=== PATIENT | female | born 1955 | race Caucasian/White ===

== ENCOUNTER 2023-01-23 10:21 | Oncology outpatient (recurring) (ONCR) | payer MEDICARE, SELFPAY | END 2023-02-03 23:59 | disposition home or self-care (01) | PROVIDERS: PCP Family Medicine; Visit Provider Internal Medicine Medical Oncology | DX: C50.811 Malignant neoplasm of overlapping sites of right female breast (principal); Z17.0 Estrogen receptor positive status [ER+]; F17.210 Nicotine dependence, cigarettes, uncomplicated; N28.89 Other specified disorders of kidney and ureter; R59.0 Localized enlarged lymph nodes; R16.1 Splenomegaly, not elsewhere classified; Z79.811 Long term (current) use of aromatase inhibitors | CPT/HCPCS: 99204 ==

== ENCOUNTER → 2023-01-23 11:20 | Outpatient (BNVA) | payer MEDICARE, SELFPAY | PROVIDERS: PCP Family Medicine; Visit Provider Internal Medicine Medical Oncology | DX: Z53.9 Procedure and treatment not carried out, unspecified reason (principal) | CPT/HCPCS: 99215 ==

== ENCOUNTER 2023-02-01 06:48 | Outpatient (CLI) | payer MEDICARE, MEDICAID, SELFPAY ==
--- NOTE | 2023-02-01 07:15 | MRR_ITS ---
PROCEDURE INFORMATION: Exam: MR Abdomen Without and With Contrast Exam date and time: 02/01/2023 7:24 AM Age: 67 years old Clinical indication: Abnormal findings; Mass, lump, or swelling; Kidney, left; Prior surgery; Surgery date: 6+ months; Surgery type: Gallbladder removal of unknown date. ; Additional info: Eval left kidney mass seen on pet; Ax t1 performed post contrast not pre. TECHNIQUE: Imaging protocol: Magnetic resonance imaging of the abdomen without and with contrast. Contrast material: MULTIHANCE; Contrast volume: 14 ml; Contrast route: INTRAVENOUS (IV); COMPARISON: No relevant prior studies available. FINDINGS: Liver: There is low signal in the liver likely related to iron deposition. No suspicious liver mass. Gallbladder and bile ducts: Stable post cholecystectomy changes. Pancreas: Unremarkable. No ductal dilation. Spleen: Splenomegaly with 14 cm spleen is unchanged. Adrenal glands: Unremarkable. No mass. Kidneys and ureters: On MRI there is no suspicious mass seen in the left kidney to correlate with the PET finding which is likely related to prominent column of Seth. The cortical nodule in the upper pole of the left kidney on PET is not seen on MRI. Nonspecific bilateral perinephric fluid. Stomach and bowel: Visualized stomach and intestines are unremarkable. Intraperitoneal space: No free fluid. Vasculature: No abdominal aortic aneurysm. Lymph nodes: Lymph node in the gastrohepatic ligament measuring 1.3 cm is unchanged without significant uptake on comparison CT. Bones/joints: Unremarkable. Soft tissues: Unremarkable. MR/MR abdomen wo/w con* [id number] IMPRESSION: 1. No suspicious renal mass identified to correlate with the PET finding which was likely related to a prominent column of Seth. 2. Stable mildly prominent gastrohepatic ligament lymph node without significant uptake on comparison PET. Recommend attention on follow-up imaging. 3. Possible hemochromatosis changes. Correlate with laboratory findings.
[2023-02-01] MEDS: gadobenate dimeglumine 20 mL vial IV (08:00)
== END 2023-02-01 06:49 | disposition home or self-care (01) ==
LOC: RAD 06:51
PROVIDERS: PCP Family Medicine; Visit Provider Internal Medicine Medical Oncology
DX: N28.89 Other specified disorders of kidney and ureter (principal); R59.9 Enlarged lymph nodes, unspecified
CPT/HCPCS: 74183; 99215; A9577

== ENCOUNTER 2023-02-08 13:49 | Oncology outpatient (recurring) (ONCR) | payer MEDICARE, SELFPAY | END 2023-03-06 23:59 | disposition home or self-care (01) | PROVIDERS: PCP Family Medicine; Visit Provider Internal Medicine Medical Oncology | DX: C50.811 Malignant neoplasm of overlapping sites of right female breast (principal); Z17.0 Estrogen receptor positive status [ER+]; N28.89 Other specified disorders of kidney and ureter; R59.0 Localized enlarged lymph nodes; R16.1 Splenomegaly, not elsewhere classified; E83.119 Hemochromatosis, unspecified; F17.210 Nicotine dependence, cigarettes, uncomplicated | CPT/HCPCS: 99215 ==

== ENCOUNTER 2023-05-15 09:41 | Oncology outpatient (recurring) (ONCR) | payer MEDICARE, MEDICAID, SELFPAY ==
[2023-05-15 10:04] VITALS: BP 157/67; PULSE 68; TEMP 36.3; O2SAT 99
[2023-05-15 10:09] LABS: Basophils % 0.4 %; Eosinophils % 1.1 %; Lymphocytes # 0.9 10^3/uL (0.8-4.8); Lymphocytes % 31.8 %; Mean Corpuscular HGB Conc 31.8 g/dL (30-55); Mean Corpuscular Hemoglobin 29.9 pg (27-33); Mean Platelet Volume 8.2 fL (7.4-10.4); Monocytes # 0.3 10^3/uL (0.2-0.9); Monocytes % 8.9 %; Neutrophils # 1.61 10^3/uL (1.8-7.7); Neutrophils % 57.4 %; Nucleated Red Blood Cells % 0 %; Platelet Count 154 10^3/cmm (157-399); Red Blood Count 2.98 10^6/uL (3.85-5.65); Red Cell Distribution Width 12.8 % (12.1-15.1)
[2023-05-15 10:34] LABS: Alanine Aminotransferase 12 U/L (0-33); Albumin Level 3.3 g/dL (3.5-5.2); Alkaline Phosphatase 199 U/L (35-105); Anion Gap 10.7 (5-19); Aspartate Amino Transferase 13 U/L (0-32); Blood Urea Nitrogen 26 mg/dL (8-23); Calcium 8.3 mg/dL (8.5-10.5); Carbon Dioxide 23 mmol/L (22-29); Chloride 101 mmol/L (98-107); Globulin 3.8 g/dL (1.3-4.6); Glucose 86 mg/dL (65-115); Osmolality Calculated 272 mOsm/kg (285-295); Potassium 5.7 mmol/L (3.5-5.1); Sodium 129 mmol/L (136-145); Total Bilirubin 0.2 mg/dL (0.15-1.2); Total Protein 7.1 g/dL (6.6-8.7)
== END 2023-06-06 23:59 | disposition home or self-care (01) ==
PROVIDERS: Internal Medicine Medical Oncology; PCP Family Medicine; Visit Provider Internal Medicine Medical Oncology
DX: C50.911 Malignant neoplasm of unspecified site of right female breast (principal); Z78.0 Asymptomatic menopausal state; N28.89 Other specified disorders of kidney and ureter; Z79.899 Other long term (current) drug therapy
CPT/HCPCS: 36415; 80053; 85025; 99215

== ENCOUNTER 2023-05-19 13:33 | Outpatient (CLI) | payer MEDICARE, SELFPAY ==
--- NOTE | 2023-05-19 14:00 | XR_ITS ---
WS: [id number] SCREENING DEXA SCAN [facility] CLINICAL INFORMATION: baseline COMPARISON: None. FINDINGS: The L1-L4 bone mineral density measures 0.941 g/cm2. This corresponds to a T score score of -2.0 and Z score of -0.4. Left femoral neck bone mineral density measures 0.737 g/cm2. This corresponds to a T score of -2.1 an d Z score of -0.8. Right femoral neck bone mineral density measures 0.728 g/cm2. This corresponds to a T score -2.2of an d Z score of -0.9. Mean femoral neck bone mineral density measures 0.733 g/cm2. This corresponds to a T score of -2.2 an d Z score of -0.8. IMPRESSION: Osteopenia lumbar spine. Osteopenia femoral necks. Patient's FRAX calculated 10 year probability for major osteoporotic fracture is 15.9% and osteoporot ic hip fracture is 5.9%.
== END 2023-05-19 13:34 | disposition home or self-care (01) ==
LOC: RAD 13:39
PROVIDERS: PCP Family Medicine; Visit Provider Internal Medicine Medical Oncology
DX: M85.88 Other specified disorders of bone density and structure, other site (principal); Z78.0 Asymptomatic menopausal state
CPT/HCPCS: 77080

== ENCOUNTER 2023-08-17 10:37 | Oncology outpatient (recurring) (ONCR) | payer MEDICARE, MEDICAID, SELFPAY ==
[2023-08-17 11:20] VITALS: BP 136/67; PULSE 83; RESP 16; TEMP 36.6; O2SAT 96
[2023-08-17 11:25] LABS: Basophils % 0.3 %; Eosinophils % 1.4 %; Hematocrit 25.2 % (36-47); Lymphocytes # 0.8 10^3/uL (0.8-4.8); Lymphocytes % 26.2 %; Mean Corpuscular Hemoglobin 29.3 pg (27-33); Mean Corpuscular Volume 94.7 fl (85-98); Mean Platelet Volume 8.1 fL (7.4-10.4); Monocytes # 0.3 10^3/uL (0.2-0.9); Monocytes % 9.3 %; Neutrophils # 1.81 10^3/uL (1.8-7.7); Neutrophils % 62.5 %; Nucleated Red Blood Cells % 0 %; Platelet Count 153 10^3/cmm (157-399); Red Blood Count 2.66 10^6/uL (3.85-5.65); Red Cell Distribution Width 12.7 % (12.1-15.1)
[2023-08-17 11:53] LABS: Alanine Aminotransferase 10 U/L (0-33); Albumin Level 3.5 g/dL (3.5-5.2); Alkaline Phosphatase 168 U/L (35-105); Anion Gap 13.3 (5-19); Aspartate Amino Transferase 12 U/L (0-32); Blood Urea Nitrogen 29 mg/dL (8-23); Calcium 8.4 mg/dL (8.5-10.5); Carbon Dioxide 25 mmol/L (22-29); Chloride 102 mmol/L (98-107); Creatinine Clr Calc Pharmacy 26.1102; Globulin 3.7 g/dL (1.3-4.6); Glomerular Filtration Rate 26.3 mL/min (90-130); Glucose 94 mg/dL (65-115); Osmolality Calculated 286 mOsm/kg (285-295); Potassium 5.3 mmol/L (3.5-5.1); Sodium 135 mmol/L (136-145); Total Bilirubin 0.2 mg/dL (0.15-1.2); Total Protein 7.2 g/dL (6.6-8.7)
== END 2023-09-06 23:59 | disposition home or self-care (01) ==
PROVIDERS: Internal Medicine Medical Oncology; PCP Family Medicine; Visit Provider Internal Medicine Medical Oncology
DX: C50.911 Malignant neoplasm of unspecified site of right female breast (principal); Z78.0 Asymptomatic menopausal state; N28.89 Other specified disorders of kidney and ureter; Z79.899 Other long term (current) drug therapy
CPT/HCPCS: 36415; 80053; 82378; 82607; 82728; 83010; 83615; 85025; 85045; 86300; 99214

== ENCOUNTER 2023-09-28 09:45 | Oncology outpatient (recurring) (ONCR) | payer MEDICARE, MEDICAID, SELFPAY ==
[2023-09-13 09:28] LABS: Basophils % 0.5 %; Eosinophils # 0.1 10^3/uL (0.0-0.8); Eosinophils % 1.9 %; Hematocrit 28.6 % (36-47); Lymphocytes # 0.9 10^3/uL (0.8-4.8); Lymphocytes % 21.3 %; Mean Corpuscular HGB Conc 31.5 g/dL (30-55); Mean Corpuscular Hemoglobin 28.7 pg (27-33); Mean Corpuscular Volume 91.1 fl (85-98); Mean Platelet Volume 8.2 fL (7.4-10.4); Monocytes # 0.3 10^3/uL (0.2-0.9); Monocytes % 6.4 %; Neutrophils # 2.94 10^3/uL (1.8-7.7); Neutrophils % 69.7 %; Nucleated Red Blood Cells % 0 %; Platelet Count 231 10^3/cmm (157-399); Red Blood Count 3.14 10^6/uL (3.85-5.65); Red Cell Distribution Width 13.7 % (12.1-15.1); White Blood Count 4.22 10^3/uL (3.29-11.43)
[2023-09-13 10:10] LABS: Alanine Aminotransferase 17 U/L (0-33); Albumin Level 3.4 g/dL (3.5-5.2); Alkaline Phosphatase 201 U/L (35-105); Anion Gap 13.6 (5-19); Aspartate Amino Transferase 18 U/L (0-32); Blood Urea Nitrogen 26 mg/dL (8-23); Calcium 8.5 mg/dL (8.5-10.5); Carbon Dioxide 24 mmol/L (22-29); Chloride 100 mmol/L (98-107); Creatinine Clr Calc Pharmacy 29.0346; Ferritin 702 ng/mL (15-150); Globulin 3.5 g/dL (1.3-4.6); Glomerular Filtration Rate 29.9 mL/min (90-130); Glucose 98 mg/dL (65-115); Lactate Dehydrogenase 114 U/L (135-214); Osmolality Calculated 279 mOsm/kg (285-295); Potassium 5.6 mmol/L (3.5-5.1); Sodium 132 mmol/L (136-145); Total Bilirubin 0.3 mg/dL (0.15-1.2); Total Protein 6.9 g/dL (6.6-8.7); Vitamin B12 1686 pg/mL (232-1245)
[2023-09-13 10:22] LABS: Iron 36 ug/dL (37-145); Total Iron Binding Capacity 171 mcg/dl; Unsaturated Iron Binding 135 ug/dL (112-347)
== END 2023-10-05 23:59 | disposition home or self-care (01) ==
PROVIDERS: Internal Medicine; PCP Family Medicine; Visit Provider Internal Medicine Medical Oncology
DX: Z53.9 Procedure and treatment not carried out, unspecified reason (principal); C18.0 Malignant neoplasm of cecum; C50.511 Malignant neoplasm of lower-outer quadrant of right female breast
CPT/HCPCS: 36415; 80053; 82378; 82607; 82728; 83540; 83550; 83615; 85025; 99215

== ENCOUNTER 2023-10-06 08:52 | Outpatient (CLI) | payer MEDICARE, MEDICAID, SELFPAY ==
[2023-10-06] MEDS: iohexol 350 mg/mL 500 mL Btl (per mL) PO (09:35)
--- NOTE | 2023-10-06 10:00 | CT_ITS ---
WS: [id number] CT CHEST, ABDOMEN AND PELVIS WITHOUT CONTRAST HISTORY: breast cancer TECHNIQUE: Contiguous 5 mm axial imaging performed through the chest, abdomen and pelvis without IV c ontrast, oral contrast has been provided. Coronal and sagittal reformats chest. Coronal and sagittal reformats through the abdomen and pelvis. All CT scans at [facility] use at least one of thes e dose optimization techniques: automated exposure control; mA and/or kV adjustment per patient size (includes targeted exams where dose is matched to clinical indication); or iterative reconstruction. CONTRAST: None DLP: 727.39 mGy.cm COMPARISON: PET/CT 01/11/[address]: Lungs are hyperexpanded. 5 mm nodule in the LEFT lower lobe was negative on PET/CT. There a re a few additional very tiny micronodules. No enlarging or suspicious mass or nodule. There are a fe w granulomata. Heart is mildly enlarged. No pericardial or pleural effusion. Prior RIGHT mastectomy. No recurrent mass at the mastectomy site. There are few small mediastinal and hilar lymph nodes. RIGHT internal mammary chain lymph node 1.3 cm unchanged. Small but numerous karen r and mediastinal lymph nodes are also unchanged as appreciated on this unenhanced exam. There is a c ardiophrenic lymph node measuring 2.0 cm which is unchanged. There are additional smaller cardiophren ic lymph nodes. Small retrocrural lymph nodes. Abdomen CT: Liver and spleen are enlarged. Gallbladder has been removed. Poor visualization of the pa ncreas. No adrenal mass. Atrophic kidneys. Marked perinephric stranding around the kidneys. There is a small amount of ascites throughout the abdomen and pelvis. Diffuse anasarca. Mild atherosclerosis a melecio. Stomach is being mildly compressed by the enlarged liver and spleen. There is mild thickening of the duodenal C-loop. No GI tract obstruction. Surgical anastomosis is noted near the hepatic flexure. No history provided concerning this surgery. There is marked soft tissue inflammation and stranding within the mesentery and omentum. There are sm all lymph nodes scattered throughout the mesentery and retroperitoneum. Pelvic CT: Small amount of free fluid in the pelvis. Diffuse soft tissue anasarca. No adenopathy. No destructive bone lesions. IMPRESSION: 1. Status post RIGHT mastectomy. No recurrent mass at the mastectomy site. 2. No suspicious pulmonary nodules identified. 3. RIGHT internal mammary chain and cardiophrenic lymph nodes are reidentified. These were present o n PET/CT and have not changed significantly in size. No new adenopathy identified on this unenhanced CT. 4. Marked hepatic and splenic enlargement. 5. Small amount of ascites throughout the abdomen and pelvis may be related to the patient's hepatoc ellular disease. 6. There are numerous small mesenteric and retroperitoneal lymph nodes. These are too small to james cterize and may be related to patient's hepatocellular disease. 7. Diffuse marked soft tissue anasarca. 8. No adrenal mass. 9. Poor visualization of the GI tract and visceral organs without IV contrast.
== END 2023-10-06 08:53 | disposition home or self-care (01) ==
LOC: RAD 08:53
PROVIDERS: PCP Family Medicine; Visit Provider Internal Medicine Medical Oncology
DX: C50.111 Malignant neoplasm of central portion of right female breast (principal); C18.0 Malignant neoplasm of cecum
CPT/HCPCS: 71250; 74176; Q9967

== ENCOUNTER 2024-01-02 08:49 | Oncology outpatient (recurring) (ONCR) | payer MEDICARE, MEDICAID, SELFPAY ==
[2024-01-02 09:09] VITALS: BP 155/71; PULSE 77; RESP 18; TEMP 36.5; O2SAT 96
[2024-01-02 09:25] LABS: Basophils % 0.4 %; Eosinophils # 0.1 10^3/uL (0.0-0.8); Eosinophils % 1.8 %; Hematocrit 25.3 % (36-47); Lymphocytes # 0.7 10^3/uL (0.8-4.8); Lymphocytes % 23.3 %; Mean Corpuscular HGB Conc 31.2 g/dL (30-55); Mean Corpuscular Hemoglobin 29.8 pg (27-33); Mean Corpuscular Volume 95.5 fl (85-98); Mean Platelet Volume 8.6 fL (7.4-10.4); Monocytes # 0.3 10^3/uL (0.2-0.9); Monocytes % 9.9 %; Neutrophils # 1.83 10^3/uL (1.8-7.7); Neutrophils % 64.6 %; Nucleated Red Blood Cells % 0 %; Platelet Count 167 10^3/cmm (157-399); Red Blood Count 2.65 10^6/uL (3.85-5.65); Red Cell Distribution Width 13.2 % (12.1-15.1); White Blood Count 2.83 10^3/uL (3.29-11.43)
[2024-01-02 10:03] LABS: Carcinoembryonic Antigen 5.6 ng/mL (0.0-4.7)
[2024-01-02 10:14] LABS: Alanine Aminotransferase 7 U/L (0-33); Albumin Level 3.4 g/dL (3.5-5.2); Alkaline Phosphatase 186 U/L (35-105); Anion Gap 15.1 (5-19); Aspartate Amino Transferase 9 U/L (0-32); Blood Urea Nitrogen 26 mg/dL (8-23); Calcium 8.5 mg/dL (8.5-10.5); Carbon Dioxide 22 mmol/L (22-29); Chloride 102 mmol/L (98-107); Creatinine Clr Calc Pharmacy 26.2064; Globulin 3.6 g/dL (1.3-4.6); Glomerular Filtration Rate 27.9 mL/min (90-130); Glucose 86 mg/dL (65-115); Lactate Dehydrogenase 92 U/L (135-214); Osmolality Calculated 282 mOsm/kg (285-295); Potassium 5.1 mmol/L (3.5-5.1); Sodium 134 mmol/L (136-145); Total Bilirubin 0.2 mg/dL (0.15-1.2)
[2024-01-02 11:41] LABS: Ferritin 374 ng/mL (15-150); Iron 37 ug/dL (37-145); Percent Saturation 19.2 % (20-50); Total Iron Binding Capacity 192 mcg/dl; Unsaturated Iron Binding 155 ug/dL (112-347)
== END 2024-01-05 23:59 | disposition home or self-care (01) ==
PROVIDERS: PCP Family Medicine; Visit Provider Internal Medicine Medical Oncology
DX: C18.0 Malignant neoplasm of cecum (principal); C50.511 Malignant neoplasm of lower-outer quadrant of right female breast; D64.9 Anemia, unspecified
CPT/HCPCS: 36415; 80053; 82378; 82728; 83540; 83550; 83615; 85025; 99214

== ENCOUNTER 2024-04-11 11:31 | Oncology outpatient (recurring) (ONCR) | payer MEDICARE, MEDICAID, SELFPAY ==
[2024-04-11 12:04] LABS: Basophils % 0.3 %; Eosinophils # 0.1 10^3/uL (0.0-0.8); Eosinophils % 2.2 %; Hematocrit 26.5 % (36-47); Lymphocytes # 0.9 10^3/uL (0.8-4.8); Lymphocytes % 27.5 %; Mean Corpuscular HGB Conc 31.7 g/dL (30-55); Mean Corpuscular Volume 94.6 fl (85-98); Mean Platelet Volume 7.9 fL (7.4-10.4); Monocytes # 0.3 10^3/uL (0.2-0.9); Monocytes % 9.7 %; Neutrophils # 1.93 10^3/uL (1.8-7.7); Neutrophils % 60.3 %; Nucleated Red Blood Cells % 0 %; Platelet Count 166 10^3/cmm (157-399); Red Cell Distribution Width 13.5 % (12.1-15.1)
[2024-04-11 12:32] LABS: Carcinoembryonic Antigen 5.9 ng/mL (0.0-4.7)
[2024-04-11 12:43] LABS: Alanine Aminotransferase 8 U/L (0-33); Albumin Level 3.6 g/dL (3.5-5.2); Alkaline Phosphatase 158 U/L (35-105); Anion Gap 15.8 (5-19); Aspartate Amino Transferase 11 U/L (0-32); Blood Urea Nitrogen 27 mg/dL (8-23); Carbon Dioxide 23 mmol/L (22-29); Chloride 104 mmol/L (98-107); Globulin 3.4 g/dL (1.3-4.6); Glomerular Filtration Rate 26.2 mL/min (90-130); Glucose 92 mg/dL (65-115); Osmolality Calculated 289 mOsm/kg (285-295); Potassium 5.8 mmol/L (3.5-5.1); Sodium 137 mmol/L (136-145); Total Bilirubin 0.2 mg/dL (0.15-1.2)
== END 2024-05-06 23:59 | disposition home or self-care (01) ==
PROVIDERS: PCP Family Medicine; Visit Provider Internal Medicine Medical Oncology
DX: C18.0 Malignant neoplasm of cecum; C50.511 Malignant neoplasm of lower-outer quadrant of right female breast; Z79.899 Other long term (current) drug therapy; F17.210 Nicotine dependence, cigarettes, uncomplicated; Z17.0 Estrogen receptor positive status [ER+]; Z90.49 Acquired absence of other specified parts of digestive tract; Z90.11 Acquired absence of right breast and nipple; Z79.811 Long term (current) use of aromatase inhibitors; D64.9 Anemia, unspecified
CPT/HCPCS: 36415; 80053; 82378; 85025; 99213

== ENCOUNTER 2024-10-01 09:04 | Oncology outpatient (recurring) (ONCR) | payer MEDICARE, SELFPAY ==
[2024-10-01 09:36] LABS: Basophils % 0.3 %; Eosinophils # 0.1 10^3/uL (0.0-0.8); Eosinophils % 1.4 %; Hematocrit 28.7 % (36-47); Lymphocytes # 0.8 10^3/uL (0.8-4.8); Lymphocytes % 23.1 %; Mean Corpuscular HGB Conc 31.4 g/dL (30-55); Mean Corpuscular Hemoglobin 29.7 pg (27-33); Mean Corpuscular Volume 94.7 fl (85-98); Mean Platelet Volume 8.4 fL (7.4-10.4); Monocytes # 0.4 10^3/uL (0.2-0.9); Monocytes % 10.7 %; Neutrophils # 2.27 10^3/uL (1.8-7.7); Neutrophils % 63.9 %; Nucleated Red Blood Cells % 0 %; Platelet Count 121 10^3/cmm (157-399); Red Blood Count 3.03 10^6/uL (3.85-5.65); Red Cell Distribution Width 14.1 % (12.1-15.1); White Blood Count 3.55 10^3/uL (3.29-11.43)
[2024-10-01 10:00] LABS: Carcinoembryonic Antigen 5.4 ng/mL (0.0-4.7)
[2024-10-01 10:11] LABS: Alanine Aminotransferase 8 U/L (0-33); Albumin Level 3.5 g/dL (3.5-5.2); Alkaline Phosphatase 157 U/L (35-105); Anion Gap 14.4 (5-19); Aspartate Amino Transferase 10 U/L (0-32); Blood Urea Nitrogen 24 mg/dL (8-23); Calcium 8.2 mg/dL (8.5-10.5); Carbon Dioxide 24 mmol/L (22-29); Chloride 103 mmol/L (98-107); Creatinine Clr Calc Pharmacy 28.3294; Globulin 3.3 g/dL (1.3-4.6); Glomerular Filtration Rate 29.8 mL/min (90-130); Glucose 91 mg/dL (65-115); Osmolality Calculated 286 mOsm/kg (285-295); Potassium 5.4 mmol/L (3.5-5.1); Sodium 136 mmol/L (136-145); Total Bilirubin 0.2 mg/dL (0.15-1.2); Total Protein 6.8 g/dL (6.6-8.7)
== END 2024-10-04 23:59 | disposition home or self-care (01) ==
PROVIDERS: Nurse Practitioner; PCP Family Medicine; Visit Provider Internal Medicine Medical Oncology
DX: C50.511 Malignant neoplasm of lower-outer quadrant of right female breast (principal); Z17.0 Estrogen receptor positive status [ER+]; C18.0 Malignant neoplasm of cecum; D50.9 Iron deficiency anemia, unspecified; F17.210 Nicotine dependence, cigarettes, uncomplicated; Z90.49 Acquired absence of other specified parts of digestive tract; Z79.811 Long term (current) use of aromatase inhibitors; Z90.11 Acquired absence of right breast and nipple
CPT/HCPCS: 36415; 80053; 82378; 85025; 99214

== ENCOUNTER 2025-05-05 12:17 | Oncology outpatient (recurring) (ONCR) | payer MEDICARE, MEDICAID, SELFPAY ==
[2025-05-05 13:25] LABS: Hematocrit 28.8 % (36-47); Hemoglobin 9.50 g/dL (11.27-16.99); Mean Corpuscular HGB Conc 33.0 g/dL (30-55); Mean Corpuscular Hemoglobin 30.4 pg (27-33); Mean Corpuscular Volume 92.3 fl (85-98); Nucleated Red Blood Cells % 0 %; Platelet Count 149 10^3/cmm (157-399); Red Blood Count 3.12 10^6/uL (3.85-5.65); White Blood Count 3.71 10^3/uL (3.29-11.43)
[2025-05-05 13:50] LABS: Carcinoembryonic Antigen 6.6 ng/mL (0.0-4.7)
[2025-05-05 14:03] LABS: Alanine Aminotransferase 6 U/L (0-33); Albumin Level 3.9 g/dL (3.5-5.2); Alkaline Phosphatase 139 U/L (35-105); Anion Gap 17.0 (5-19); Aspartate Amino Transferase 10 U/L (0-32); Blood Urea Nitrogen 31 mg/dL (8-23); Calcium 8.7 mg/dL (8.5-10.5); Carbon Dioxide 23 mmol/L (22-29); Chloride 103 mmol/L (98-107); Creatinine Clr Calc Pharmacy 26.7952; Globulin 3.7 g/dL (1.3-4.6); Glucose 91 mg/dL (65-115); Osmolality Calculated 290 mOsm/kg (285-295); Potassium 6.0 mmol/L (3.5-5.1); Sodium 137 mmol/L (136-145); Total Protein 7.6 g/dL (6.6-8.7)
== END 2025-05-06 23:59 | disposition home or self-care (01) ==
PROVIDERS: PCP Family Medicine; Visit Provider Internal Medicine Medical Oncology
DX: C50.511 Malignant neoplasm of lower-outer quadrant of right female breast (principal); C18.0 Malignant neoplasm of cecum; D64.9 Anemia, unspecified; Z79.899 Other long term (current) drug therapy; F17.210 Nicotine dependence, cigarettes, uncomplicated; Z17.0 Estrogen receptor positive status [ER+]; Z90.49 Acquired absence of other specified parts of digestive tract; Z90.11 Acquired absence of right breast and nipple; Z79.811 Long term (current) use of aromatase inhibitors
CPT/HCPCS: 36415; 80053; 82378; 85025; 99214

== ENCOUNTER 2025-05-27 12:30 | Oncology outpatient (recurring) (ONCR) | payer MEDICARE, MEDICAID, SELFPAY ==
--- NOTE | 2025-05-16 13:30 | PETR_ITS ---
PROCEDURE INFORMATION: Exam: PET/CT Skull Base to Mid-thigh Exam date and time: 05/16/2025 2:18 PM Age: 69 years old Clinical indication: Condition or disease; Primary cancer: Breast cancer; Additional info: Infilltrating ductal carcinoma of lower-outer quadrant LABS AND CLINICAL REPORTS: Glucose: 101 mg/dl Treatment strategy for malignancy (PET staging): Initial Staging (PI) TECHNIQUE: Imaging protocol: Following at least four-hour fasting and following the injection of radiopharmaceutical, low dose CT images were obtained. Then, PET images were obtained. Attenuation corrected images were constructed using the CT scan. Fused images of PET and CT were reviewed. The standardized uptake values (SUV) reported below are maximum values within a region of interest, expressed in gm/ml. Exam includes orbital meatal line to mid-thigh. SUV normalization method: BodyWeight Radiopharmaceutical: 10.53 mCi F-18 FDG (Fluorodeoxyglucose), IV. Time of imaging post radiopharmaceutical administration: 57 minutes Injection site: L AC COMPARISON: 1. CT PET skull to thigh INIT [id number] 01/11/2023 3:[address] [place] [id number] 10/06/2023 10:11 AM 3. MR abdomen wo/w con* [id number] 02/01/2023 7:24 AM FINDINGS: Brain: Visualized brain has normal physiologic uptake. Pharynx: No abnormal uptake. Larynx: No abnormal uptake. Lungs, pleura and trachea: No abnormal uptake. Left lower lobe calcified granuloma. No consolidation or mass. Heart: Normal physiologic uptake. Mediastinal space: No abnormal uptake. Mild coronary artery calcification. Esophagus: Intermittent low-level FDG uptake along the esophagus without underlying CT abnormality. Liver: No abnormal uptake. Stable size and morphology. Gallbladder and biliary ducts: No abnormal uptake. Prior cholecystectomy. Pancreas: No abnormal uptake. Spleen: No abnormal uptake. Stable splenomegaly. Calcified granulomata. Adrenal glands: No abnormal uptake. Kidneys and ureters: Normal physiologic uptake. Bilateral renal atrophy with stable symmetric perirenal fat stranding. Stomach and bowel: Prior partial right colectomy. Diffuse FDG uptake along the colon without underlying CT abnormality is likely benign physiologic or inflammatory, small neoplasm could be obscured. Colonic diverticulosis without findings of diverticulitis. Vasculature: No abnormal uptake. Mild systemic atherosclerotic calcification without aortic aneurysm. Lymph nodes: Mildly increased low-level FDG uptake at stable size mildly prominent right cardiophrenic lymph nodes, index measuring 1.3 cm in the short axis on axial image 110 showing SUV max 3.1, previously 2.2. Calcified left hilar node in keeping with sequela of old granulomatous disease. Skeleton: Developed FDG avid left humeral head focus without underlying CT abnormality shows SUV max 7.2 on axial image 50. Developed focal proximal right humeral shaft FDG uptake without underlying CT abnormality shows SUV max 5.3 on axial image 37. Developed FDG avid left iliac lytic lesion measuring 2.1 cm in length on axial image 182 with SUV max 6.8. FDG avid left intertrochanteric femur focus without underlying CT abnormality shows SUV max 5.3 on axial image 237. Asymmetric linear FDG uptake at the inferior left ischial tuberosity margin with slight cortical irregularity, SUV max 4.6 on axial image 241. Degenerative change along the spine, shoulders and sacroiliac joints. Soft tissues: No abnormal uptake in the visualized head, neck, chest, abdomen, pelvis, and extremities. Prior right mastectomy. Right axillary surgical clips. Small fat containing bilateral inguinal hernias. METRICS: Mediastinal blood pool: SUV mean 1.9 Liver uptake: SUV mean 2.3 PET/PET skull to thigh INIT [id number] IMPRESSION: 1. Developed multifocal osseous metastatic disease involving the left humeral head, proximal right humeral shaft, left ilium, and left intertrochanteric femur. 2. Asymmetric linear FDG uptake at the inferior left ischial tuberosity margin with slight cortical irregularity. Favor inflammatory enthesitis, metastasis thought less likely. 3. Mildly increased low-level FDG uptake at stable size mildly prominent right cardiophrenic lymph nodes. 4. Diffuse FDG uptake along the colon without underlying CT abnormality is likely benign physiologic or inflammatory, small neoplasm could be obscured. 5. Stable splenomegaly. 6. Intermittent low-level FDG uptake along the esophagus is likely inflammatory.
[2025-05-27 12:37] LABS: Hematocrit 27.3 % (36-47); Hemoglobin 8.90 g/dL (11.27-16.99); Mean Corpuscular HGB Conc 32.6 g/dL (30-55); Mean Corpuscular Hemoglobin 30.2 pg (27-33); Mean Corpuscular Volume 92.5 fl (85-98); Nucleated Red Blood Cells % 0 %; Platelet Count 140 10^3/cmm (157-399); Red Blood Count 2.95 10^6/uL (3.85-5.65); White Blood Count 3.81 10^3/uL (3.29-11.43)
[2025-05-27 13:11] LABS: Alanine Aminotransferase 7 U/L (0-33); Albumin Level 3.7 g/dL (3.5-5.2); Alkaline Phosphatase 133 U/L (35-105); Anion Gap 15.2 (5-19); Aspartate Amino Transferase 11 U/L (0-32); Blood Urea Nitrogen 29 mg/dL (8-23); CA 15-3 12.7 U/mL (0-25); Calcium 8.5 mg/dL (8.5-10.5); Carbon Dioxide 24 mmol/L (22-29); Chloride 102 mmol/L (98-107); Ferritin 473 ng/mL (15-150); Globulin 3.4 g/dL (1.3-4.6); Glucose 96 mg/dL (65-115); Osmolality Calculated 288 mOsm/kg (285-295); Potassium 5.2 mmol/L (3.5-5.1); Sodium 136 mmol/L (136-145); Thyroid Stimulating Hormone 2.21 uIU/mL (0.27-4.20); Total Protein 7.1 g/dL (6.6-8.7); Vitamin B12 1172 pg/mL (232-1245)
[2025-05-27 13:43] LABS: Carcinoembryonic Antigen 6.5 ng/mL (0.0-4.7)
== END 2025-06-06 23:59 | disposition home or self-care (01) ==
PROVIDERS: PCP Family Medicine; Visit Provider Internal Medicine Medical Oncology
DX: C50.511 Malignant neoplasm of lower-outer quadrant of right female breast; Z17.0 Estrogen receptor positive status [ER+]; C79.52 Secondary malignant neoplasm of bone marrow; D50.9 Iron deficiency anemia, unspecified; F17.210 Nicotine dependence, cigarettes, uncomplicated; Z79.899 Other long term (current) drug therapy; Z90.11 Acquired absence of right breast and nipple; Z85.038 Personal history of other malignant neoplasm of large intestine; Z53.9 Procedure and treatment not carried out, unspecified reason
CPT/HCPCS: 36415; 78815; 80053; 82378; 82607; 82728; 82746; 84443; 85025; 86300; 86334; 99214; A9552

== ENCOUNTER 2025-06-09 12:04 | Oncology outpatient (recurring) (ONCR) | payer MEDICARE, MEDICAID, SELFPAY ==
[2025-06-09 12:45] LABS: Hematocrit 27.2 % (36-47); Hemoglobin 8.70 g/dL (11.27-16.99); Mean Corpuscular HGB Conc 32.0 g/dL (30-55); Mean Corpuscular Hemoglobin 29.7 pg (27-33); Mean Corpuscular Volume 92.8 fl (85-98); Nucleated Red Blood Cells % 0 %; Platelet Count 134 10^3/cmm (157-399); Red Blood Count 2.93 10^6/uL (3.85-5.65); White Blood Count 3.58 10^3/uL (3.29-11.43)
[2025-06-09 13:05] LABS: Alanine Aminotransferase < 5 U/L (0-33); Albumin Level 3.8 g/dL (3.5-5.2); Alkaline Phosphatase 131 U/L (35-105); Anion Gap 13.9 (5-19); Aspartate Amino Transferase 8 U/L (0-32); Blood Urea Nitrogen 23 mg/dL (8-23); Calcium 8.4 mg/dL (8.5-10.5); Carbon Dioxide 25 mmol/L (22-29); Chloride 99 mmol/L (98-107); Globulin 3.6 g/dL (1.3-4.6); Glucose 79 mg/dL (65-115); Magnesium 2.4 mg/dL (1.7-2.3); Osmolality Calculated 279 mOsm/kg (285-295); Potassium 4.9 mmol/L (3.5-5.1); Sodium 133 mmol/L (136-145); Total Protein 7.4 g/dL (6.6-8.7)
[2025-06-09] MEDS: denosumab-bbdz 120 mg SDV (Inpatient and Infusion Clinic Use) SUBCUT (14:55)
== END 2025-07-06 23:59 | disposition home or self-care (01) ==
PROVIDERS: Nurse Practitioner; PCP Family Medicine; Visit Provider Internal Medicine Medical Oncology
DX: C50.511 Malignant neoplasm of lower-outer quadrant of right female breast (principal); Z17.0 Estrogen receptor positive status [ER+]; C79.52 Secondary malignant neoplasm of bone marrow; D50.9 Iron deficiency anemia, unspecified; F17.210 Nicotine dependence, cigarettes, uncomplicated; Z79.899 Other long term (current) drug therapy; Z90.11 Acquired absence of right breast and nipple; Z85.038 Personal history of other malignant neoplasm of large intestine
CPT/HCPCS: 36415; 80053; 82306; 83735; 85025; 96372; 99215; Q5136

== ENCOUNTER 2025-07-07 11:41 | Oncology outpatient (recurring) (ONCR) | payer MEDICARE, MEDICAID, SELFPAY ==
[2025-07-07 12:04] LABS: Hematocrit 28.3 % (36-47); Hemoglobin 9.10 g/dL (11.27-16.99); Mean Corpuscular HGB Conc 32.2 g/dL (30-55); Mean Corpuscular Hemoglobin 30.3 pg (27-33); Mean Corpuscular Volume 94.3 fl (85-98); Nucleated Red Blood Cells % 0 %; Platelet Count 148 10^3/cmm (157-399); Red Blood Count 3.00 10^6/uL (3.85-5.65); White Blood Count 3.71 10^3/uL (3.29-11.43)
[2025-07-07 12:33] LABS: Alanine Aminotransferase 11 U/L (0-33); Albumin Level 3.7 g/dL (3.5-5.2); Alkaline Phosphatase 154 U/L (35-105); Anion Gap 12.5 (5-19); Aspartate Amino Transferase 10 U/L (0-32); Blood Urea Nitrogen 25 mg/dL (8-23); Calcium 8.8 mg/dL (8.5-10.5); Carbon Dioxide 24 mmol/L (22-29); Chloride 101 mmol/L (98-107); Globulin 3.8 g/dL (1.3-4.6); Glucose 88 mg/dL (65-115); Magnesium 2.3 mg/dL (1.7-2.3); Osmolality Calculated 278 mOsm/kg (285-295); Potassium 5.5 mmol/L (3.5-5.1); Sodium 132 mmol/L (136-145); Total Protein 7.5 g/dL (6.6-8.7)
[2025-07-07] MEDS: denosumab-bbdz 120 mg SDV (Inpatient and Infusion Clinic Use) SUBCUT (13:36)
== END 2025-08-06 23:59 | disposition home or self-care (01) ==
PROVIDERS: Nurse Practitioner; PCP Family Medicine; Visit Provider Internal Medicine Medical Oncology
DX: C50.511 Malignant neoplasm of lower-outer quadrant of right female breast (principal); Z17.0 Estrogen receptor positive status [ER+]; C79.52 Secondary malignant neoplasm of bone marrow; C18.0 Malignant neoplasm of cecum; D50.9 Iron deficiency anemia, unspecified; D64.9 Anemia, unspecified; M85.80 Other specified disorders of bone density and structure, unspecified site; F17.210 Nicotine dependence, cigarettes, uncomplicated; Z79.899 Other long term (current) drug therapy; Z90.11 Acquired absence of right breast and nipple
CPT/HCPCS: 36415; 80053; 82306; 83735; 85025; 96372; 99214; Q5136